=== PATIENT | male | born 1985 | race American Indian/Alaskan Native ===

== ENCOUNTER 2021-09-04 22:34 | Emergency (ER) | payer OTHER ==
[2021-09-04] MEDS ORDERED: NALOXONE 0.4 MG/1 ML INJ IV PRN (22:41)
[2021-09-04] MEDS ORDERED: NALOXONE 0.4 MG/1 ML INJ IV ONE (22:41)
[2021-09-04] MEDS ORDERED: SODIUM CHLORIDE 0.9% 1000 ML 1,000 ML IV ONE (22:41)
[2021-09-04] MEDS ORDERED: ONDANSETRON 4 MG/2 ML INJ IV ONE (22:41)
--- NOTE | 2021-09-04 22:43 | Emergency Department Report ---
ED General Adult HPI - General Chief complaint: Overdose Stated complaint: POSS OD Time Seen by Provider: 09/04/21 22:41 Source: patient, RN notes reviewed Mode of arrival: Stretcher Limitations: Altered Mental Status, Other (Opioid intoxication) - History of Present Illness Initial comments: The patient is a 36-year-old gentleman who was brought to the emergency room by friends, after accidental heroin overdose. Upon arrival, the patient is breathing with difficulty, and has pinpoint pupils. He requires 4 mg of Narcan through IV. After Narcan administration the patient immediately wakes up. He denies physical pain. He denies homicidality, suicidality. He reports that he nasally consumed heroin for recreational reasons. He then goes back to sleep but continues to breathe spontaneously. -: This evening Improves with: none Worsens with: none - Related Data Previous Rx's Medication Instructions Recorded Last Taken Type Naloxone HCl [Narcan Nasal [place]] 4 mg NS PRN PRN #1 spray 09/04/21 Unknown Rx ED Review of Systems ROS: Stated complaint: POSS OD Other details as noted in HPI Comment: Unobtainable due to pts medical conditions Cardiovascular: denies: chest pain Gastrointestinal: denies: abdominal pain Psychiatric: denies: homicidal thoughts, suicidal thoughts ED Past Medical Hx - Medications Home Medications: Home Medications Medication Instructions Recorded Confirmed Last Taken Type Naloxone HCl [Narcan Nasal [place]] 4 mg NS PRN PRN #1 spray 09/04/21 Unknown Rx ED Physical Exam - General Limitations: Other (Patient is opioid intoxicated) General appearance: appears intoxicated - Head Head exam: Present: atraumatic, normocephalic - Eye Eye exam: Absent: normal appearance (Pupils are pinpoint) - ENT ENT exam: Present: normal exam, normal orophraynx, mucous membranes moist, normal external ear exam - Neck Neck exam: Present: normal inspection, full ROM. Absent: tenderness, meningismus - Respiratory Respiratory exam: Present: normal lung sounds bilaterally. Absent: respiratory distress, wheezes, rales, rhonchi, stridor, decreased breath sounds - Cardiovascular Cardiovascular Exam: Present: regular rate, normal rhythm, normal heart sounds. Absent: bradycardia, tachycardia, irregular rhythm, systolic murmur, diastolic murmur, rubs, gallop - GI/Abdominal GI/Abdominal exam: Present: soft. Absent: distended, tenderness, guarding, rebound, rigid, pulsatile mass - Rectal Rectal exam: Present: deferred - Extremities Exam Extremities exam: Present: normal inspection, full ROM, other (2+ pulses noted in the bilateral upper and lower extremities. There is no palpable cord. negative Homans sign. Muscular compartments are soft. The pelvis is stable.). Absent: pedal edema, calf tenderness - Back Exam Back exam: Present: normal inspection. Absent: tenderness, CVA tenderness (R), CVA tenderness (L), paraspinal tenderness, vertebral tenderness - Neurological Exam Neurological exam: Present: alert (After Narcan administration, patient is awake to name, moving 4 extremities, alert to name and location. He is not homicidal suicidal), other (There is no facial droop. The tongue is midline. EOMI. 5-5 strength in 4 extremities) - Psychiatric Psychiatric exam: Absent: homicidal ideation, suicidal ideation - Skin Skin exam: Present: warm, dry, intact, normal color. Absent: rash ED Course Vital Signs 09/04/21 09/04/21 09/04/21 22:45 22:46 23:11 Temperature 98.2 F Pulse Rate 113 H 85 Respiratory 20 14 Rate Blood Pressure 145/107 128/96 [Left] O2 Sat by Pulse 98 100 100 Oximetry O2 Sat by Pulse Oximetry [ Digit-Finger] 09/04/21 09/04/21 09/04/21 23:28 23:45 23:55 Temperature Pulse Rate 80 80 Respiratory 16 Rate Blood Pressure 127/97 120/89 [Left] O2 Sat by Pulse 100 Oximetry O2 Sat by Pulse 98 Oximetry [ Digit-Finger] 09/05/21 09/05/21 09/05/21 00:15 00:45 01:15 Temperature Pulse Rate 71 73 71 Respiratory Rate Blood Pressure 128/96 115/89 129/93 [Left] O2 Sat by Pulse Oximetry O2 Sat by Pulse Oximetry [ Digit-Finger] 09/05/21 01:50 Temperature 98.2 F Pulse Rate 76 Respiratory 16 Rate Blood Pressure 125/88 [Left] O2 Sat by Pulse 100 Oximetry O2 Sat by Pulse Oximetry [ Digit-Finger] - Reevaluation(s) Reevaluation #1: 09/04/21 23:52 Differential diagnosis, including but not limited to: Opioid overdose Assessment and plan: 36-year-old gentleman, status post opioid overdose. He is breathing spontaneously. He is not homicidal or suicidal. There was no indication or history of trauma. His laboratory studies are nonactionable. He is still opioid intoxicated but breathing spontaneously. He does not require Narcan at this time. Care will be transferred to the oncoming ER physician to observe patient, Dr Christopher Chavez, and discharge when clinically sober. 09/06/21 00:02 - EJ/Peripheral Line Arm R Time Out Performed: Yes Indications: multiple IV sites needed Skin Cleansed in Sterile Fashion: Yes Size: 20 Dressing Placed: Tegaderm Patient Tolerated Procedure: well - Pulse Oximetry Interpretation Digit-Finger Initial Pulse Oximetry Readin O2 Sat by Pulse Oximetry: 98 Actions Taken: none (After Narcan administration) ED Medical Decision Making - Lab Data Result diagrams: 09/04/21 22:52 - EKG Data -: EKG Interpreted by Me EKG shows normal: sinus rhythm Rate: normal - EKG Data 09/04/21 23:05 The EKG is interpreted at 22: 44 Sinus rhythm, 94 bpm. Normal axis, normal intervals, motion artifact, normal P wave axis. This is an abnormal EKG. This is not a STEMI Critical Care Time: Yes Critical care time in (mins) excluding proc time.: 35 Critical care attestation.: If time is entered above; I have spent that time in minutes in the direct care of this critically ill patient, excluding procedure time. ED Disposition Clinical Impression: Heroin overdose Disposition: 01 HOME / SELF CARE / HOMELESS Is pt being admited?: No Does the pt Need Aspirin: No Condition: Good Instructions: Opioid Overdose Additional Instructions: Recommend that the patient not consume opioids, heroin, tobacco, alcohol or smoke products. Please follow-up with a primary care doctor or mental health specialist within the next week. Use the Narcan medication as needed and directed. Opioid overdoses such as heroin overdose may cause , disability, paralysis, and loss of quality of life. Please return to the emergency room right away with new pain, worsened pain, migration of pain, projectile vomiting, change in mental status, confusion, inability tolerate liquid feeds, new, worsened or different symptoms not present on the initial emergency room evaluation Prescriptions: Naloxone HCl [Narcan Nasal [place]] 4 mg NS PRN PRN #1 spray PRN Reason: Opioid Reversal Referrals: [facility] [Outside[facility] - 3[facility]5 Days [facility]
[2021-09-04 23:28] LABS: BUN/Creatinine Ratio 15; Blood Urea Nitrogen 15 mg/dL (9-20); Calcium 9.4 mg/dL (8.4-10.2); Hemolysis Index 8
[2021-09-05 06:04] VITALS: BP 125/88
--- NOTE | 2021-09-06 14:20 | Electrocardiograph Report ---
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
== END 2021-09-05 01:50 | disposition home or self-care (01) ==
LOC: ED 22:34
DX: T40.1X1A Poisoning by heroin, accidental (unintentional), initial encounter (principal); Y92.89 Other specified places as the place of occurrence of the external cause
CPT/HCPCS: 36415; 80048; 80320; 93005; 96374; 99283; 99284; G0480